=== PATIENT | male | born 2000 | race Caucasian/White ===

== ENCOUNTER 2019-06-07 07:38 | Emergency (ER) | payer MEDICAID ==
[~2019-06-07] VITALS: Ht 180.3 cm; Wt 116.0 kg
[2019-06-07 07:54] VITALS: BP 125/82
[2019-06-07] MEDS ORDERED: IBUPROFEN 800MG TABLET PO ONE (08:15)
== END 2019-06-07 19:45 | disposition home or self-care (01) ==
LOC: ER 07:38
DX: J06.9 Acute upper respiratory infection, unspecified (principal); H66.90 Otitis media, unspecified, unspecified ear; R51 Headache
CPT/HCPCS: 99283